=== PATIENT | male | born 1995 | race Caucasian/White ===

== ENCOUNTER 2017-08-20 02:49 | Emergency (ER) | payer OTHER ==
[~2017-08-20] VITALS: Ht 180.3 cm; Wt 87.7 kg
[2017-08-20 02:57] VITALS: TEMP 37.2; Ht 180.3 cm; Wt 87.7 kg
[2017-08-20] MEDS ORDERED: ONDANSETRON INJ 2 MG/ML 2 ML VIAL IV STA (03:13)
[2017-08-20] MEDS ORDERED: PANTOprazole SOD 40 MG TAB PO STA (03:13)
[2017-08-20] MEDS ORDERED: GI COCKTAIL PO ONE (03:15)
[2017-08-20] MEDS ORDERED: SODIUM CHLORIDE 0.9% 1000ML 1,000 ML IV ONE (03:15)
[2017-08-20] MEDS ORDERED: ALUMINUM/MAGNESIUM SUSP 30 ML UDC ONE (03:21)
[2017-08-20] MEDS ORDERED: LIDOCAINE HCL 2% VISC SOLN 20 ML UDC ONE (03:21)
[2017-08-20 03:34] LABS: BASO % 0.8 %; BASO ABS # 0.08 K/uL (0-0.2); COMPLETE YES; EOS % 1.8 %; HEMATOCRIT 45.9 % (42-52); IG% 0.3 %; LYMPH % 45.2 %; LYMPH ABS # 4.39 K/uL (1.2-3.4); MEAN CELL VOLUME 83.3 fL (80-100); MEAN CORPUSCULAR HGB CONC 32.5 g/dl (32-36); MEAN PLATELET VOLUME 9.5 fL (7.4-10.4); MONO % 10.3 %; NEUT % 41.6 %; PLATELET COUNT 206 K/uL (130-400); RED BLOOD COUNT 5.51 M/uL (4.7-6.1); WHITE BLOOD COUNT 9.71 K/uL (4.8-10.8)
[2017-08-20 03:40] LABS: URINE APPEARANCE CLEAR (CLEAR); URINE BILIRUBIN NEG (NEG); URINE COLOR DK YELLOW; URINE NITRITE NEG (NEG); URINE SPECIFIC GRAVITY 1.028 (1.000-1.030); UROBILINOGEN NEG (NEG); ZZUR CULT IF INDIC CLEAN CATCH NO
[2017-08-20 03:41] LABS: MANUAL MICROSCOPIC REQUIRED? NO; REVIEW REQ? NO
[2017-08-20 03:51] LABS: BUN/CREATININE RATIO 8.6 (10-20); CALCIUM 8.9 mg/dl (8.5-10.1); CREATININE 1.16 mg/dl (0.60-1.40); POTASSIUM 3.7 mmol/L (3.5-5.1)
[2017-08-20 04:02] LABS: THYROID STIMULATING HORMONE 1.38 uIu/ml (0.300-4.500)
[2017-08-20 05:12] VITALS: BP 114/72; PULSE 105; O2SAT 98
--- NOTE | 2017-08-20 06:57 | EMERGENCY ROOM VISIT NOTE ---
History First contact with patient: 03:05 Chief Complaint: ILLNESS Stated Complaint: VOMITING, FEVER, COUGHING, SORETHROAT, SOB History of Present Illness The patient is a 22 year old male who presents to the Emergency Room with complaints of generalized illness, sore throat, cough, and abdominal discomfort for the past 3 or 4 weeks. The patient has been able to eat and drink despite his illness. He now presents to the emergency department today as he had 2 episodes of vomiting today. He does not report a distinct fever or chills, but has felt warm. He does not have known exposure to disease and considers himself usually healthy. He does not take medication on a regular basis. He rates his discomfort a 6/10. Review of Systems More than 10 systems were reviewed and otherwise negative with the exception of history of present illness. Past Medical/Surgical History No chronic medical disease Family History No pertinent family history Social History Smoking Status: Never Smoker Physical Exam Vital Signs Date Time Temp Pulse Resp B/P (MAP) Pulse Ox O2 Delivery O2 Flow Rate FiO2 08/20/17 05:12 105 18 114/72 98 08/20/17 02:57 37.2 123 18 143/88 98 Room Air Physical Exam VITALS: Vitals are noted on the nurse's note and reviewed by myself. Vital signs stable. GENERAL: Well-developed, well-nourished, white male, who is in no acute distress and resting comfortably. Patient is cooperative with the examination. HEAD: Normocephalic atraumatic. EARS: External ear normal. External auditory canals clear, tympanic membranes pearly rankin without erythema or effusion bilaterally. EYES: Pupils equal round and reactive to light and accommodation. Conjunctivae without injection, sclerae without icterus. Extraocular movements intact. NOSE: Patent, turbinates without inflammation or discharge. MOUTH: Mucous membranes moist. Tonsils are not enlarged. Pharynx without erythema, blood, or exudate. Uvula midline. Airway patent. NECK: Supple without nuchal rigidity. No lymphadenopathy. No thyromegaly. Cervical spine is nontender. HEART: Regular rate and rhythm without murmurs gallops or rubs. LUNGS: Clear to auscultation bilaterally without wheezes, rales or rhonchi. No retractions or accessory muscle use. ABDOMEN: Positive normal bowel sounds x 4. Soft, nontender, without masses or organomegaly. No guarding or rebound tenderness. MUSCULOSKELETAL: No muscle atrophy, erythema, or edema noted. Full range of motion without joint tenderness in all extremities Medical Decision & Procedures Laboratory Results 08/20/17 03:20 Red Blood Count 5.51, Mean Corpuscular Volume 83.3, Mean Corpuscular Hemoglobin 27.0, Mean Corpuscular Hemoglobin Concent 32.5, Mean Platelet Volume 9.5, Neutrophils (%) (Auto) 41.6, Lymphocytes (%) (Auto) 45.2, Monocytes (%) (Auto) 10.3, Eosinophils (%) (Auto) 1.8, Basophils (%) (Auto) 0.8, Neutrophils # (Auto ) 4.04, Lymphocytes # (Auto) 4.39, Monocytes # (Auto) 1.00, Eosinophils # (Auto ) 0.17, Basophils # (Auto) 0.08 08/20/17 03:20 Test 08/20/17 03:20 White Blood Count 9.71 K/uL (4.8-10.8) Red Blood Count 5.51 M/uL (4.7-6.1) Hemoglobin 14.9 g/dL (14.0-18.0) Hematocrit 45.9 % (42-52) Mean Corpuscular Volume 83.3 fL (80-100) Mean Corpuscular Hemoglobin 27.0 pg (25-34) Mean Corpuscular Hemoglobin Concent 32.5 g/dl (32-36) Platelet Count 206 K/uL (130-400) Mean Platelet Volume 9.5 fL (7.4-10.4) Neutrophils (%) (Auto) 41.6 % Lymphocytes (%) (Auto) 45.2 % Monocytes (%) (Auto) 10.3 % Eosinophils (%) (Auto) 1.8 % Basophils (%) (Auto) 0.8 % Neutrophils # (Auto) 4.04 K/uL (1.4-6.5) Lymphocytes # (Auto) 4.39 K/uL (1.2-3.4) Monocytes # (Auto) 1.00 K/uL (0.11-0.59) Eosinophils # (Auto) 0.17 K/uL (0-0.5) Basophils # (Auto) 0.08 K/uL (0-0.2) RDW Standard Deviation 39.9 fL (36.4-46.3) RDW Coefficient of Variation 13.1 % (11.5-14.5) Immature Granulocyte % (Auto) 0.3 % Immature Granulocyte # (Auto) 0.03 K/uL (0.00-0.02) Urine Color DK YELLOW Urine Appearance CLEAR (CLEAR) Urine pH 5.0 (4.5-7.5) Urine Specific Outlook 1.028 (1.000-1.030) Urine Protein TRACE (NEG) Urine Glucose (UA) NEG (NEG) Urine Ketones 2+ (NEG) Urine Occult Blood NEG (NEG) Urine Nitrite NEG (NEG) Urine Bilirubin NEG (NEG) Urine Urobilinogen NEG (NEG) Urine Leukocyte Esterase NEG (NEG) Urine WBC (Auto) 1-5 /hpf (0-5) Urine RBC (Auto) 0-4 /hpf (0-4) Urine Hyaline Casts (Auto) 5-10 /lpf (0-5) Urine Epithelial Cells (Auto) 5-10 /lpf (0-5) Urine Bacteria (Auto) NEG (NEG) Anion Gap 8.0 mmol/L (3-11) Est Creatinine Clear Calc Drug Dose 108.1 ml/min Estimated GFR () 104.5 Estimated GFR (Non- 90.2 BUN/Creatinine Ratio 8.6 (10-20) Calcium Level 8.9 mg/dl (8.5-10.1) Magnesium Level 2.0 mg/dl (1.8-2.4) Total Bilirubin 0.5 mg/dl (0.2-1) Aspartate Amino Transf (AST/SGOT) 26 U/L (15-37) Alanine Aminotransferase (ALT/SGPT) 54 U/L (12-78) Alkaline Phosphatase 62 U/L (45-117) Total Protein 8.2 gm/dl (6.4-8.2) Albumin 4.0 gm/dl (3.4-5.0) Globulin 4.2 gm/dl (2.5-4.0) Albumin/Globulin Ratio 1.0 (0.9-2) Lipase 154 U/L (73-393) Thyroid Stimulating Hormone (TSH) 1.380 uIu/ml (0.300-4.500) Monoscreen POS (NEG) Medications Administered Medications (Trade) Dose Ordered Sig/Samira Route Start Time Stop Time Status Last Admin Dose Admin Sodium Chloride 1,000 ml @ 999 mls/hr Q1H1M ONCE IV 08/20/17 03:15 08/20/17 04:15 DC 08/20/17 03:25 999 MLS/HR Ondansetron HCl (Zofran Inj) 4 mg NOW STAT IV 08/20/17 03:13 08/20/17 03:15 DC 08/20/17 03:25 4 MG Pantoprazole Sodium (Protonix Tab) 40 mg NOW STAT PO 08/20/17 03:13 08/20/17 03:15 DC 08/20/17 03:25 40 MG Al Hydroxide/Mg Hydroxide (Maalox Susp) 30 ml STK-MED ONCE .ROUTE 08/20/17 03:21 08/20/17 03:22 DC 08/20/17 03:25 30 ML Lidocaine HCl (Viscous Lidocaine 2% Soln) 20 ml STK-MED ONCE .ROUTE 08/20/17 03:21 08/20/17 03:22 DC 08/20/17 03:26 20 ML ED Course Physical exam and history were performed. Nursing notes, EMR, and Medication List were personally reviewed. Patient appears to have vague symptoms of illness and sore throat for the past month. He has had some nausea and vomiting symptoms for the past one day. He does not appear toxic on examination. IV access was established and labs were obtained. The patient was hydrated with normal saline. I did elect to perform chest and abdominal x-rays. The patient's blood work is as above and was reviewed. He does not have a significant elevated white blood cell count, gross anemia, bandemia, or significant electrolyte imbalance. Transaminases are nondiagnostic his x-rays do not show significant acute findings. His Monospot was positive, and this is felt to be the likely cause of his symptoms. I had discussion with patient regarding his findings. He was educated on the importance of avoiding physical activity and monitoring for spleen injury. The patient is to use [id number] analgesics for pain control. He is to follow with [facility] in the next few days for recheck. He will be given a home pack of Zofran to help with his nausea symptoms. He was otherwise invited back to the ER with any new, worsening, or concerning symptoms. The chart was completed utilizing [employer] Speech Voice Recognition Software. Grammatical errors, random word insertions, pronoun errors, and incomplete sentences are an occasional consequence of this system due to software limitations, ambient noise, and hardware issues. Any formal questions or concerns about the content, text, or information contained within the body of this dictation should be directly addressed to the provider for clarification. . Medical Decision Differential diagnosis: Etiologies such as viral syndrome, tonsillitis, streptococcal pharyngitis, mononucleosis, peritonsillar abscess, retropharyngeal abscess, otitis, pneumonia , influenza, as well as others were entertained. Impression Primary Impression: Infectious mononucleosis Departure Information Dispostion Home / Self-Care Condition GOOD Forms HOME CARE DOCUMENTATION FORM, IMPORTANT VISIT INFORMATION Patient Instructions My [facility], ED Mononucleosis Additional Instructions You were seen and evaluated today on an emergency basis only. This is not a substitute for, or an effort to provide, complete comprehensive medical care. It is not possible to recognize and treat all injuries or illnesses in a single emergency department visit. For this reason it is recommended that you followup with [facility] Monday for recheck of your condition. For baseline pain relief you may alternate ibuprofen and acetaminophen every 4 hours for pain control. Take 600 mg ibuprofen (Advil) and then 4 hours later take 1000 mg acetaminophen (Tylenol). Do not take more than 3000 mg acetaminophen in a single day. Drink plenty of fluids and remain well hydrated You are welcome to return to the emergency department anytime with new, worsening, or concerning symptoms.
--- NOTE | 2017-08-20 07:28 | DIAGNOSTIC IMAGING REPORT ---
ABDOMEN 2VIEW W/PA CHEST RTN HISTORY: 22 years-old Male epigastric abd pain. n/v acute epigastric abdominal pain with vomiting and fever. Acute shortness of breath COMPARISON: None available TECHNIQUE: Frontal view of the chest with erect and supine views of the abdomen FINDINGS: Cardiomediastinal and hilar silhouettes are within normal limits. No pneumothorax, pleural effusion, focal airspace consolidation or overt pulmonary edema. The bones of the chest are grossly intact. Bowel gas pattern is nonobstructive. No organomegaly, pneumoperitoneum or urolith. No fracture or significant degenerative changes. IMPRESSION: 1. No acute cardiopulmonary process. 2. Nonobstructive bowel gas pattern without pneumoperitoneum. The above report was generated using voice recognition software. It may contain grammatical, syntax or spelling errors. Electronically signed by: Isaac Ramos M.D. 08/20/2017 7:27 AM Dictated Date/Time: 08/20/2017 7:25 AM
== END 2017-08-20 04:50 | disposition home or self-care (01) ==
LOC: C.EDB 02:50
DX: B27.90 Infectious mononucleosis, unspecified without complication (principal)